=== PATIENT | female | born 1940 | race Caucasian/White ===

== ENCOUNTER 2022-01-05 11:22 | Emergency (ER) | payer OTHER ==
[~2022-01-05] VITALS: Ht 172.7 cm; Wt 83.9 kg
[~2022-01-05 11:22] MED LIST: DILT240; DULO30; FOSI10; GABA300; METF500; Norco 5-325 Ta1 EACH PO; ULTRA-LIGHT RO1 EACH MC
[2022-01-05] MEDS ORDERED: FOSAMAX70 MG PO (13:36)
[2022-01-05] MEDS ORDERED: Cephalexin500 MG PO (14:04)
== END 2022-01-05 14:13 | disposition home or self-care (01) ==
LOC: ER 11:22
DX: L03.114 Cellulitis of left upper limb (principal); I10 Essential (primary) hypertension; E11.42 Type 2 diabetes mellitus with diabetic polyneuropathy; Z79.899 Other long term (current) drug therapy
CPT/HCPCS: 99283

== ENCOUNTER 2022-07-02 08:53 | Observation (INO) | payer OTHER ==
[~2022-07-02] VITALS: Ht 175.3 cm; Wt 79.1 kg
[~2022-07-02 08:53] MED LIST changes: +Cephalexin500 MG PO; +FOSAMAX70 MG PO
[2022-07-02] MEDS ORDERED: LISI5 PO (10:19)
[2022-07-02] MEDS ORDERED: VITAMIN D310 MC1 PO (10:20)
[2022-07-02 10:23] LABS: BASOPHILS ABSOLUTE AUTO 0.03 K/mm3 (0.00-0.23); BASOPHILS PERCENT AUTO 0 % (0-2); EOSINOPHILS PERCENT AUTO 0 % (0-6); Hematocrit 31.4 % (33.0-51.0); IMMATURE GRAN ABSOLUTE AUTO 0.06 K/mm3 (0.00-0.10); IMMATURE GRAN PERCENT AUTO 1 % (0-1); LYMPHOCYTES PERCENT AUTO 6 % (21-46); MONOCYTES ABSOLUTE AUTO 1.79 K/mm3 (0.16-1.47); MONOCYTES PERCENT AUTO 17 % (4-13); Mean Corpuscular HGB 29.9 pg (26.0-34.0); Mean Corpuscular HGB Conc 31.8 g/dL (31.5-36.5); Mean Corpuscular Volume 94 fL (80-100); Mean Platelet Volume 9.7 fL (9.1-12.4); NEUTROPHILS ABSOLUTE AUTO 7.83 K/mm3 (1.96-9.15); NEUTROPHILS PERCENT AUTO 76 % (41-73); Platelet Count 258 K/mm3 (150-400); RDW Coefficient Variation 14.6 % (11.7-14.2); RDW Standard Deviation 50.4 fL (35.1-46.3); Red Blood Cell Count 3.34 M/mm3 (3.80-5.20); White Blood Cell Count 10.31 K/mm3 (4.00-11.30)
[2022-07-02] MEDS ORDERED: DONE10 PO (10:29)
[2022-07-02] MEDS ORDERED: CYAN500 PO (10:30)
[2022-07-02] MEDS ORDERED: BISA10S (10:30)
[2022-07-02] MEDS ORDERED: APHEN325 MG PO (10:30)
[2022-07-02] MEDS ORDERED: IMODIUM A-D2 M3 PO (10:31)
[2022-07-02] MEDS ORDERED: ALMACONE SUSPE355 ML (10:31)
[2022-07-02 10:39] LABS: Albumin, Blood 2.5 g/dL (3.4-5.0); Albumin/Globulin Ratio 0.8 (0.8-1.8); Bilirubin, Total 0.8 mg/dL (0.1-1.0); Bun/Creatinine Ratio 24.5 (12.0-20.0); Creatinine, Blood 1.06 mg/dL (0.40-1.00); Globulin, Blood 3.1 g/dL (2.2-4.0); Potassium, Blood 4.5 mmol/L (3.5-5.5); Total Protein, Blood 5.6 g/dL (6.4-8.2)
--- NOTE | 2022-07-03 04:57 | NUR ---
SHIFT SUMMARY A/O TO SELF ONLY. DEMENTIA AT BASELINE-BED ALARM ON FOR SAFETY. L LEG REMAINS VERY SWOLLEN AND BRUISED. NO REPORT OF PAIN THROUGHOUT THE SHIFT UNLESS REPOSITIONING PATIENT. PT PULLED OUT TENA AT BEGINING OF SHIFT, PLACED ATTENDS ON PT. AWAITING VOID AT THIS TIME, FLUIDS RUNNING PER ORDERS. IV PLACED TO R FA. NO ACUTE CHANGES THROUGHOUT THE NIGHT. UNABLE TO TOLERATE BUCKS TRACTION. WILL CONTINUE TO MONITOR AND REPORT TO ONCOMING RN.
--- NOTE | 2022-07-03 18:45 | NUR ---
SHIFT SUMMARY PT'S LEFT FEMUR FRACTURE IS NON-SURGICAL AND REMAINS IN IMMOBILIZER. PT CONTINUES TO VOID VERY LITTLE. THE PLAN IS FOR THE PATIENT TO RETURN TO [facility] IN ORDER TO REMAIN WITH . PT WILL POSSIBLY LEAVE EITHER TOMORROW OR SATURDAY. VSS AND REPORTS MINIMAL PAIN.
[2022-07-04 04:47] LABS: BASOPHILS ABSOLUTE AUTO 0.04 K/mm3 (0.00-0.23); BASOPHILS PERCENT AUTO 1 % (0-2); EOSINOPHILS PERCENT AUTO 0 % (0-6); Hematocrit 23.8 % (33.0-51.0); Hemoglobin 7.5 g/dL (11.5-16.0); IMMATURE GRAN ABSOLUTE AUTO 0.02 K/mm3 (0.00-0.10); IMMATURE GRAN PERCENT AUTO 0 % (0-1); LYMPHOCYTES ABSOLUTE AUTO 0.99 K/mm3 (0.84-5.20); LYMPHOCYTES PERCENT AUTO 13 % (21-46); MONOCYTES ABSOLUTE AUTO 1.88 K/mm3 (0.16-1.47); MONOCYTES PERCENT AUTO 25 % (4-13); Mean Corpuscular HGB Conc 31.5 g/dL (31.5-36.5); Mean Corpuscular Volume 95 fL (80-100); Mean Platelet Volume 10.3 fL (9.1-12.4); NEUTROPHILS ABSOLUTE AUTO 4.53 K/mm3 (1.96-9.15); NEUTROPHILS PERCENT AUTO 61 % (41-73); Platelet Count 195 K/mm3 (150-400); RDW Coefficient Variation 14.8 % (11.7-14.2); RDW Standard Deviation 51.8 fL (35.1-46.3); White Blood Cell Count 7.46 K/mm3 (4.00-11.30)
[2022-07-04 05:04] LABS: Calcium, Blood 7.7 mg/dL (8.5-10.1); Creatinine, Blood 0.78 mg/dL (0.40-1.00); Potassium, Blood 3.4 mmol/L (3.5-5.5)
--- NOTE | 2022-07-04 06:02 | NUR ---
SHIFT SUMMARY PT HAS RESTED OFF AND T/O THE NIGHT. PT HAS A NEW IV THIS AM AFTER LOSING TWO OF THEM OVER THE COURSE OF 24 HOURS. FLUIDS ARE INFUSING AND PT IS VOIDING, GFR IMPROVED. PT DENIES PAIN IN LEFT HIP, IMMOBILIZER IN PLACE, SHE DENIES N/T IN EXT. VITALS STABLE. BED IN LOWEST POSITION, CALL LIGHT WITHIN REACH.
--- NOTE | 2022-07-04 07:30 | NUR ---
INITIAL ASSESSMENT: Patient is awake, lying in bed watching TV. Pt is oriented to self and location only, she has poor short term memory. She reports 8/10 left hip pain, she was repositioned off of her left hip and medicated with [place]. HRR, murmur noted. LS CTA, Biox is high 90s on RA. BT+. Pt has attends in place. Left leg a little more swollen than the right. She has an immoblizer in place on the left leg. PPP. Trace edema noted. She denies N/T, she is able to wiggle her toes. AM meds given at this time with a sip of water, patient denies other needs at this time. Call light in reach, bed alarm on for high fall risk.
[2022-07-04 13:03] LABS: Hematocrit 23.5 % (33.0-51.0); Hemoglobin 7.5 g/dL (11.5-16.0)
--- NOTE | 2022-07-04 15:55 | NUR ---
UPDATE: Patient has been resting comfortably, pain has been under control this afternoon. Pt was given a bed bath. She has been resting comfortably. Call light in reach. Bed alarm on for safety. Report given to Luzmaria MAYFIELD.
--- NOTE | 2022-07-04 19:28 | NUR ---
SHIFT SUMMARY PT A&O1, PLEASANT & COOPERATIVE, VSS/RA, VIANEY PO, VOIDING/ATTENDS, PAIN W/NORCO 5/TORADOL. PT HAS L FEMUR FX/TEA WRAP/BUCKS TRACTION, TO BE IN IMMOBILIZER WHEN MOVING - HAD TO REMOVE IMMOBILIZER TO GET BUCKS ON, WIGGLES TOES, REPOSITIONS WELL. WILL REPORT TO ONCOMING NOC RN.
--- NOTE | 2022-07-04 22:34 | NUR ---
PT COMPLAINING OF CHEST PAIN, PT REPORTS THAT IT DOES NOT FEEL CARDIAC RELATED. PT IS BELCHING AND POINTING TO EPIGASTRIC REGION. SHE REPORTS THAT SHE HAD FELT IT MOST OF THE DAY. DR. SAENZ CALLED AND NOTIFIED. RECEIVED ORDER FOR GI COCKTAIL.
--- NOTE | 2022-07-05 03:34 | NUR ---
SHIFT SUMMARY NO ACUTE CHANGES TO REPORT OVERNIGHT. PT IS IN BUCKS TRACTION AND IS TOLERATING. PAIN IN LEFT HIP HAS BEEN WELL CONTROLLED. PT HAS COMPLAINTS OF A STOMACH ACHE AND CHEST/EPIGASTRIC PAIN DR. SAENZ NOTIFIED AND GI COCKTAIL ORDERED. GI COCKTAIL RELIEVED PAIN AND SHE REPORTS THAT HER STOMACH IS FEELING BETTER. PLAN REMAINS FOR DISCHARGE HOSPICE. PT HAS SOME CONFUSION BUT ABLE TO ANSWER MOST QUESTIONS APPROPRIATELY. BED IN LOWEST POSITION, CALL LIGHT WITHIN REACH.
[2022-07-05 04:39] LABS: BASOPHILS ABSOLUTE AUTO 0.04 K/mm3 (0.00-0.23); BASOPHILS PERCENT AUTO 1 % (0-2); EOSINOPHILS PERCENT AUTO 0 % (0-6); Hematocrit 26.1 % (33.0-51.0); Hemoglobin 8.4 g/dL (11.5-16.0); IMMATURE GRAN ABSOLUTE AUTO 0.08 K/mm3 (0.00-0.10); IMMATURE GRAN PERCENT AUTO 1 % (0-1); LYMPHOCYTES ABSOLUTE AUTO 0.77 K/mm3 (0.84-5.20); LYMPHOCYTES PERCENT AUTO 10 % (21-46); MONOCYTES PERCENT AUTO 13 % (4-13); Mean Corpuscular HGB 29.9 pg (26.0-34.0); Mean Corpuscular HGB Conc 32.2 g/dL (31.5-36.5); Mean Corpuscular Volume 93 fL (80-100); NEUTROPHILS ABSOLUTE AUTO 6.06 K/mm3 (1.96-9.15); NEUTROPHILS PERCENT AUTO 76 % (41-73); Platelet Count 220 K/mm3 (150-400); RDW Coefficient Variation 14.8 % (11.7-14.2); RDW Standard Deviation 49.4 fL (35.1-46.3); Red Blood Cell Count 2.81 M/mm3 (3.80-5.20); White Blood Cell Count 7.95 K/mm3 (4.00-11.30)
[2022-07-05 04:55] LABS: Albumin, Blood 2.1 g/dL (3.4-5.0); Anion Gap 3 mmol/L (6-16); Blood Urea Nitrogen 35 mg/dL (8-24); Bun/Creatinine Ratio 48.3 (12.0-20.0); CO2, Blood 28 mmol/L (21-32); Calcium, Blood 8.1 mg/dL (8.5-10.1); Chloride, Blood 111 mmol/L (98-108); Creatinine, Blood 0.72 mg/dL (0.40-1.00); Glomerular Filtration Rate 83 (60-); Glucose, Blood 136 mg/dL (70-99); Phosphorus, Blood 2.3 mg/dL (2.5-4.9); Potassium, Blood 4.3 mmol/L (3.5-5.5); Sodium, Blood 142 mmol/L (136-145)
[2022-07-05] MEDS ORDERED: NYSTRIT TOP (11:18)
--- NOTE | 2022-07-05 13:22 | NUR ---
Spiritual Care Visit. Pt. is awake in bed and welcomes my visit. Pt. is pleasant, and verbalizes expectation of a discharge to home soon. Listen with interest, and calming presence. Normalize the Pt. experience and establish rapport. [place] for Pt. Pt. verbalized gratitude for the spiritual care visit.
--- NOTE | 2022-07-05 13:33 | NUR ---
5770 SPOKE WITH ADÁN AT [facility]
--- NOTE | 2022-07-05 14:57 | NUR ---
1415 PTS DAUGHTER HERE AND REVIEWED PATIENT DISCHARGE INSTRUCTIONS WITH HER. PATIENT AND DAUGHTER IN AGREEMENT WITH PLAN TO DISCHARGE TO HOME. PER DAUGHTER HOSPICE WILL SEE PATIENT TODAY AT 1500. DISCHARGED VIA [facility] AND NON EMERGENCY TRANSPORT AT 1440
== END 2022-07-05 14:45 | disposition hospice, home (50) ==
LOC: ER 08:53 → SURS 08:54 → ERHOLD 15:38 → ER 15:38 → SURS 15:38 → ERHOLD 17:38 → SURS 17:38 → ER 07-03 12:30 → SURS 07-03 12:30
PROVIDERS: Family Medicine; Internal Medicine; Physician Assistant; ADMIT Internal Medicine
DX: S72.402A Unspecified fracture of lower end of left femur, initial encounter for closed fracture (principal); S79.812A Other specified injuries of left hip, initial encounter; M81.0 Age-related osteoporosis without current pathological fracture; E87.6 Hypokalemia; D64.9 Anemia, unspecified; E83.39 Other disorders of phosphorus metabolism; E88.09 Other disorders of plasma-protein metabolism, not elsewhere classified; E11.9 Type 2 diabetes mellitus without complications; I10 Essential (primary) hypertension; F03.90 Unspecified dementia, unspecified severity, without behavioral disturbance, psychotic disturbance, mood disturbance, and anxiety; W19.XXXA Unspecified fall, initial encounter; Z79.899 Other long term (current) drug therapy; Z66 Do not resuscitate
CPT/HCPCS: 29505; 36415; 73502; 73562-LT; 73610; 73700; 76377; 80048; 80053; 80069; 85014; 85018; 85025; 96372; 96374-59; 96376; 97162; 97166; 97530; 99285-25; A9270; G0378; J1170; J1650; J1885; J7030